=== PATIENT | female | born 1990 | race Hispanic/Latino ===

== ENCOUNTER 2022-10-15 13:25 | Outpatient (CLI) | payer OTHER | END 2022-10-15 13:26 | disposition home or self-care (01) | LOC: BICRAD 13:25 | PROVIDERS: ATTEND Nurse Practitioner Family | DX: S13.4XXA Sprain of ligaments of cervical spine, initial encounter (principal) | CPT/HCPCS: 72050; 72072 ==

== ENCOUNTER 2025-04-10 11:29 | Outpatient (CLI) | payer OTHER | END 2025-04-10 11:30 | disposition home or self-care (01) | LOC: DTY/OP 11:29 | PROVIDERS: ATTEND Family Medicine | DX: Z71.3 Dietary counseling and surveillance (principal) | CPT/HCPCS: 97802 ==